=== PATIENT | female | born 1990 ===

== ENCOUNTER 2016-09-14 00:09 | Emergency (ER) | payer BC, OTHER ==
[2016-09-14 00:09] VITALS: BMI 19.1
[2016-09-14 00:34] VITALS: BP 140/84; PULSE 112; RESP 15; TEMP 98.6; O2SAT 100
[2016-09-14 00:57] LABS: RBC URINE 2686 /hpf (0-3); URINE BACTERIA FEW (<OCC); URINE BILIRUBIN NEGATIVE (NEGATIVE); URINE BLOOD LARGE (NEGATIVE); URINE COLOR RED (YELLOW); URINE GLUCOSE (UA) NEG (Normal); URINE KETONE NEGATIVE (NEGATIVE); URINE LEUKOCYTE ESTERASE LARGE Leu/uL (Negative); URINE PROTEIN 100 mg/dL (NEGATIVE); URINE UROBILINOGEN 0.2-1.0 mg/dL (0.2-1.0); WBC URINE 282 /hpf (0-5)
--- NOTE | 2016-09-14 01:51 | ED PDOC ---
HPI: Female Pain Time Seen by Provider: 09/14/16 00:33 Chief Complaint (Nursing): Female Genitourinary Chief Complaint (Provider): Dysuria, Urinary Frequency History Per: Patient History/Exam Limitations: no limitations Onset/Duration Of Symptoms: Hrs (x12 hours), Intermittent Episodes Current Symptoms Are (Timing): Still Present Severity: Moderate Quality Of Discomfort: Burning Associated Symptoms: Urinary Symptoms (urinary urgency inclusive of dysuria and hematuria). denies: Fever, Chills, Nausea, Vomiting, Diarrhea, Back Pain Additional Complaint(s): India Sadler is a 26 year old female, with no pertinent past medical history, who presents to the emergency department for the evaluation of intermittent painful, bloody urination, that the patient has been experiencing for the past 12 hours. Patient states that her urinary symptoms are frequent and described as a burning sensation. Denies a fever, back pain, chills, nausea , vomiting, or diarrhea. PMD: Dr. Das Past Medical History Reviewed: Historical Data, Nursing Documentation, Vital Signs Vital Signs: Last Vital Signs Temp 98.6 F 09/14/16 00:32 Pulse 112 H 09/14/16 00:32 Resp 15 09/14/16 00:32 BP 140/84 09/14/16 00:32 Pulse Ox 100 09/14/16 00:32 - Medical History PMH: No Chronic Diseases - Surgical History Surgical History: No Surg Hx - Family History Family History: States: No Known Family Hx - Social History Current smoker - smoking cessation education provided: No Ex-Smoker (has not smoked in the last 12 months): No Alcohol: None Drugs: Denies - Immunization History Hx Tetanus Toxoid Vaccination: No - Home Medications Home Medications: Ambulatory Orders Medication Instructions Recorded Ciprofloxacin [Cipro] 500 mg PO Q12 #14 tab 09/14/16 Phenazopyridine HCl [Pyridium] 100 mg PO TID #6 tab 09/14/16 - Allergies Allergies/Adverse Reactions: Allergies Allergy/AdvReac Type Severity Reaction Status Date / Time No Known Allergies Allergy Verified 09/14/16 00:32 Review of Systems ROS Statement: Except As Marked, All Systems Reviewed And Found Negative Constitutional: Negative for: Fever, Chills Gastrointestinal: Negative for: Nausea, Vomiting, Diarrhea Genitourinary Female: Positive for: Dysuria, Frequency, Hematuria Musculoskeletal: Negative for: Back Pain Physical Exam - Reviewed Nursing Documentation Reviewed: Yes Vital Signs Reviewed: Yes - Physical Exam Appears: Positive for: Non-toxic, No Acute Distress Head Exam: Positive for: ATRAUMATIC, NORMOCEPHALIC Skin: Positive for: Normal Color, Warm, Dry Eye Exam: Positive for: Normal appearance, EOMI ENT: Positive for: Normal ENT Inspection. Negative for: Pharyngeal Erythema, Tonsillar Exudate, Tonsillar Swelling Neck: Positive for: Normal, Painless ROM Cardiovascular/Chest: Positive for: Regular Rate, Rhythm. Negative for: Murmur Respiratory: Positive for: Normal Breath Sounds. Negative for: Respiratory Distress Gastrointestinal/Abdominal: Positive for: Normal Exam, Soft, Tenderness ( suprapubic) Back: Positive for: Normal Inspection. Negative for: L CVA Tenderness, R CVA Tenderness Extremity: Positive for: Normal ROM. Negative for: Tenderness Neurologic/Psych: Positive for: Alert, Oriented - ECG O2 Sat by Pulse Oximetry: 100 (RA) Pulse Ox Interpretation: Normal Medical Decision Making Medical Decision Makin:33 Initial Impression: 26 year old female, urinary symptoms Initial Plan: * Urinalysis * Urine Dip * Urine * Urine Culture * Cipro 500 mg PO * Pyridium 200 mg PO * Reevaluation 01:00 Urinalysis is indicative of a urinary tract infection. 01:25 Upon provider reevaluation patient is feeling better, is medically stable, and requires no further treatment in the emergency department at this time. Patient will be discharged home. Counseling was provided and all questions were answered regarding diagnosis. Patient is in is agreement with the discharge plan. Return if symptoms persist or worsen. Clinical Impression: Urinary tract infection Scribe Attestation: Documented by Joe Contreras, acting as a scribe for John Haskins MD. Provider Scribe Attestation: All medical record entries made by the Scribe were at my direction and personally dictated by me. I have reviewed the chart and agree that the record accurately reflects my personal performance of the history, physical exam, medical decision making, and the department course for this patient. I have also personally directed, reviewed, and agree with the discharge instructions and disposition. Disposition - Clinical Impression Clinical Impression: Urinary tract infection - Patient ED Disposition Is Patient to be Admitted: No - Disposition Disposition: Routine/Home Disposition Time: 01:25 Condition: STABLE Prescriptions: Ciprofloxacin [Cipro] 500 mg PO Q12 #14 tab Phenazopyridine HCl [Pyridium] 100 mg PO TID #6 tab Instructions: Urinary Tract Infection in Women (ED) Forms: [facility] ED School/Work Excuse
== END 2016-09-14 01:34 | disposition home or self-care (01) ==
LOC: H.ER 00:09
DX: N39.0 Urinary tract infection, site not specified (principal); Z87.891 Personal history of nicotine dependence